=== PATIENT | female | born 1960 | race Caucasian/White ===

== ENCOUNTER 2022-07-04 13:18 | Emergency (ER) | payer OTHER ==
[2022-07-04 13:35] VITALS: BMI 25.9
[2022-07-04] MEDS ORDERED: SODIUM CHLORIDE 0.9% 500 ML INFUS.BAG IV ONE (13:44)
[2022-07-04] MEDS ORDERED: ONDANSETRON 4 MG/2 ML VIAL ONE (13:45)
[2022-07-04] MEDS ORDERED: ONDANSETRON 4 MG/2 ML VIAL IVPUSH ONE (13:45)
[2022-07-04 14:13] LABS: HEMATOCRIT 39.5 % (32.4-45.2); HEMOGLOBIN 13.3 GM/dL (10.7-15.3); LYMPH % 36.6 % (8-40); MCH 29.2 pg (25.7-33.7); MCHC 33.7 g/dl (32.0-36.0); MEAN CELL VOLUME 86.7 fl (80-96); MEAN PLT VOLUME 8.9 fl (7.5-11.1); MONO % 5.6 % (3.8-10.2); NEUT % 55.8 % (42.8-82.8); PLATELET COUNT 222 10^3/uL (134-434); RBC 4.56 M/mm3 (3.60-5.2); RDW 13.1 % (11.6-15.6); WHITE BLOOD COUNT 8.5 K/mm3 (4.0-10.0)
[2022-07-04 14:29] LABS: BLOOD UREA NITROGEN 12.4 mg/dL (7-18); CALCIUM 9.3 mg/dL (8.5-10.1)
[2022-07-04 14:32] LABS: CREATININE 0.9 mg/dL (0.55-1.3)
[2022-07-04 14:33] LABS: BILIRUBIN,TOTAL 0.4 mg/dL (0.2-1)
[2022-07-04 14:34] LABS: TOT PROT 7.4 g/dl (6.4-8.2)
[2022-07-04 15:50] VITALS: RESP 16
[2022-07-04] MEDS ORDERED: MECLIZINE HCL 25 MG TABLET (FP) PO ONE (16:56)
[2022-07-04] MEDS ORDERED: MECLIZINE HCL 25 MG TABLET (FP) ONE (17:05)
[2022-07-04 18:56] VITALS: BP 131/73; PULSE 59
== END 2022-07-04 18:56 | disposition home or self-care (01) ==
LOC: JER 13:18
PROC: 3E033GC Introduction of Other Therapeutic Substance into Peripheral Vein, Percutaneous Approach (ICD-10-PCS; principal; 2022-07-04)
DX: R42 Dizziness and giddiness (principal)
CPT/HCPCS: 36415; 71045-TC-FY; 80053; 83690; 84484; 85025; 93005; 93010; 99285-25

== ENCOUNTER 2024-02-28 15:35 | Emergency (ER) | payer BC, OTHER ==
[2024-02-28 15:57] VITALS: RESP 16; TEMP 97.6; BMI 24.2
[2024-02-28] MEDS ORDERED: MECLIZINE HCL 25 MG TABLET (FP) ONE (17:29)
[2024-02-28] MEDS ORDERED: ACETAMINOPHEN 325 MG TABLET (FP) ONE (17:29)
[2024-02-28] MEDS ORDERED: KETOROLAC TROMETHAMINE 15 MG/ML VIAL ONE (17:29)
[2024-02-28 17:33] LABS: BASO % 0.4 % (0-2.0); EOS % 0.3 % (0-4.5); HEMATOCRIT 40.6 % (32.4-45.2); HEMOGLOBIN 13.5 GM/dL (10.7-15.3); LYMPH % 15.8 % (8-40); MCH 28.6 pg (25.7-33.7); MCHC 33.3 g/dl (32.0-36.0); MEAN CELL VOLUME 85.7 fl (80-96); MEAN PLT VOLUME 8.6 fl (7.5-11.1); MONO % 3.4 % (3.8-10.2); NEUT % 80.1 % (42.8-82.8); PLATELET COUNT 214 10^3/uL (134-434); RBC 4.74 M/mm3 (3.60-5.2); RDW 13.4 % (11.6-15.6); WHITE BLOOD COUNT 6.6 K/mm3 (4.0-10.0)
[2024-02-28 17:40] LABS: PH,URINE 8.5 (5.0-8.0); URINE APPEARANCE TURBID; URINE BILIRUBIN NEGATIVE (NEGATIVE); URINE COLOR YELLOW; URINE GLUCOSE (UA) NEGATIVE (NEGATIVE); URINE KETONE NEGATIVE (NEGATIVE); URINE LEUK ESTERASE NEGATIVE (NEGATIVE); URINE NITRITE NEGATIVE (NEGATIVE); URINE PROTEIN NEGATIVE (NEGATIVE); URINE UROBILINOGEN 0.2 mg/dL (0.2-1.0)
[2024-02-28] MEDS: SODIUM CHLORIDE 0.9% 500 ML INFUS.BAG IV ONE (17:48)
[2024-02-28] MEDS: ACETAMINOPHEN 325 MG TABLET (FP) PO ONE (17:48)
[2024-02-28] MEDS: MECLIZINE HCL 25 MG TABLET (FP) PO ONE (17:49)
[2024-02-28] MEDS: KETOROLAC TROMETHAMINE 15 MG/ML VIAL IVPUSH ONE (17:49)
[2024-02-28 17:56] LABS: POTASSIUM 3.7 mmol/L (3.5-5.1)
[2024-02-28 17:58] LABS: ALBUMIN 3.8 g/dl (3.4-5.0); CALCIUM 9.2 mg/dL (8.5-10.1)
[2024-02-28 17:59] LABS: BLOOD UREA NITROGEN 14.6 mg/dL (7-18); MAGNESIUM 2.1 mg/dL (1.8-2.4)
[2024-02-28 18:01] LABS: CREATININE 0.7 mg/dL (0.55-1.3)
[2024-02-28 18:02] LABS: PHOSPHOROUS 2.1 mg/dL (2.5-4.9)
[2024-02-28 18:03] LABS: BILIRUBIN,TOTAL 0.4 mg/dL (0.2-1); TOT PROT 6.9 g/dl (6.4-8.2)
[2024-02-28] MEDS ORDERED: NAPH,MB-DB/K PH,MBDB POWDER PACKET ONE (18:25)
[2024-02-28] MEDS: NAPH,MB-DB/K PH,MBDB POWDER PACKET PO ONE (18:29)
[2024-02-28 19:27] VITALS: BP 144/92; PULSE 64
== END 2024-02-28 19:28 | disposition home or self-care (01) ==
LOC: JER 15:35
PROC: 3E0333Z Introduction of Anti-inflammatory into Peripheral Vein, Percutaneous Approach (ICD-10-PCS; principal; 2024-02-28)
DX: G43.909 Migraine, unspecified, not intractable, without status migrainosus (principal); R42 Dizziness and giddiness; R06.02 Shortness of breath; R53.1 Weakness; R11.0 Nausea; R68.83 Chills (without fever); Z20.822 Contact with and (suspected) exposure to COVID-19
CPT/HCPCS: 0241U-QW; 36415; 80053; 81003; 83735; 84100; 84484; 85025; 87086; 93005; 93010; 96374; 99284-25